=== PATIENT | male | born 1975 | race Caucasian/White ===

== ENCOUNTER 2020-05-27 18:25 | Emergency (ER) | payer OTHER ==
[~2020-05-27] VITALS: Ht 167.6 cm; Wt 79.4 kg
[2020-05-27] MEDS ORDERED: PERCOCET PO (20:54)
[2020-05-27 21:25] VITALS: BP 144/91
[2020-05-27] MEDS ORDERED: ACETAZOLAMIDE500 MG PO (21:33)
== END 2020-05-27 21:27 | disposition home or self-care (01) ==
LOC: ER 18:25
DX: H40.9 Unspecified glaucoma (principal)